=== PATIENT | female | born 2005 | race Caucasian/White ===

== ENCOUNTER 2025-02-12 05:19 | Emergency (ER) | payer MEDICAID, OTHER ==
[~2025-02-12] VITALS: Ht 154.9 cm; Wt 64.0 kg
[2025-02-12 05:33] VITALS: O2SAT 99
[2025-02-12] MEDS ORDERED: DIPHENHYDRAMINE 50MG CAPSULE PO ONE (07:30)
[2025-02-12 08:01] LABS: BASOPHILS % 0.5 % (0.0-2.0); EOSINOPHILS % 2.1 % (0.0-5.0); HEMATOCRIT. 40.7 % (36.0-48.0); HEMOGLOBIN. 13.6 g/dL (12.0-16.0); LYMPHOCYTES % 15.9 % (20.0-50.0); MEAN PLATELET VOLUME 8.8 fl (7.4-10.4); MONOCYTES % 7.1 % (2.0-8.0); NEUTROPHILS % 74.4 % (40.0-76.0); PLATELET 239 x1000/uL (130-400); RED BLOOD CELL COUNT 4.59 mill/uL (4.2-5.4); RED CELL DISTRIBUTION WIDTH 14.9 % (11.6-14.6)
[2025-02-12] MEDS: FAMOTIDINE 20MG TABLET PO ONE (08:03)
[2025-02-12] MEDS: DIPHENHYDRAMINE 25MG CAPSULE PO NR (08:04)
[2025-02-12 08:15] LABS: CREATININE 0.6 mg/dL (0.6-1.0); UREA NITROGEN BLOOD 9 mg/dL (9-23)
[2025-02-12 08:17] LABS: ASPARTATE AMINOTRANSFERASE 31 IU/L (<34); BILIRUBIN TOTAL 0.6 mg/dL (0.1-1.0); PROTEIN TOTAL 7.2 g/dL (6.0-8.3)
[2025-02-12 08:59] LABS: B-HCG QUANTITATIVE 4904 mIU/mL (<6)
[2025-02-12 11:53] VITALS: BP 101/83; PULSE 90; RESP 20; TEMP 36.8; O2SAT 98
== END 2025-02-12 11:56 | disposition home or self-care (01) ==
LOC: ER 05:19
DX: O26.893 Other specified pregnancy related conditions, third trimester (principal); R21 Rash and other nonspecific skin eruption; R51.9 Headache, unspecified; R50.9 Fever, unspecified; N89.8 Other specified noninflammatory disorders of vagina; Z3A.35 35 weeks gestation of pregnancy
CPT/HCPCS: 99284; 76805; 80053; 84702; 85025; 36415; Q0163